=== PATIENT | male | born 1980 | race African-American/Black ===

== ENCOUNTER 2024-10-20 19:33 | Emergency (ER) | payer OTHER, SELFPAY ==
[2024-10-20 19:36] VITALS: BP 144/85; PULSE 83; RESP 17; TEMP 36.7; O2SAT 100
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
--- NOTE | 2024-10-20 20:43 | PC.NURSE ---
Right shoulder wound cleaned with NS. RN placed triple antibiotic cream, non-adherent dressing, abd pad and gauze over wound. Right eye cleaned with NS and Erythromycin placed on right eye by RN.
== END 2024-10-20 21:05 | disposition home or self-care (01) ==
LOC: ANHED 20:53
PROVIDERS: Emergency Provider Emergency Medicine
DX: S05.01XA Injury of conjunctiva and corneal abrasion without foreign body, right eye, initial encounter (principal); S40.211A Abrasion of right shoulder, initial encounter; V42.6XXA Car passenger injured in collision with two- or three-wheeled motor vehicle in traffic accident, initial encounter
CPT/HCPCS: 99283